=== PATIENT | female | born 1950 | race Caucasian/White ===

== ENCOUNTER 2020-03-06 21:07 | Emergency (ER) | payer MEDICARE, MEDICAID, SELFPAY ==
--- NOTE | ~2020-03-06 | CT_ITS ---
EXAMINATION: CT facial bones wo con DATE: 03/06/2020 22:21 INDICATION: Right face injury. TECHNIQUE: Computed tomography (CT) of the facial bones and maxillofacial region was performed withou t intravenous contrast. Automated exposure control and iterative reconstruction technique were employ ed. The dose-length product was 605.33 mGy-cm. COMPARISON: None. FINDINGS: There are blowout fractures of the floor and medial wall of right orbit. There is gas in th e right orbit and periorbital soft tissues with soft tissue swelling. There is hematoma in the right maxillary sinus. There is mild mucosal thickening in the ethmoid sinuses. There are old fracture defo rmities of the nasal bones. The patient is edentulous. IMPRESSION: 1. Blowout fractures of the floor and medial wall of right orbit. Reviewed, dictated and finalized at location A.
--- NOTE | ~2020-03-06 | CT_ITS ---
EXAMINATION: CT brain wo con DATE: 03/06/2020 22:21 INDICATION: Head injury. TECHNIQUE: Computed tomography (CT) of the head was performed without intravenous contrast. The mA wa s adjusted according to patient size. Iterative reconstruction technique was employed. The dose-lengt h product was 605.33 mGy-cm. COMPARISON: None FINDINGS: There are scattered areas of low attenuation in the cerebral white matter. There is no intr acranial hemorrhage, acute infarction, or abnormal intracranial mass lesion. The ventricles are moustapha l in size. There are likely changes of ocular lens replacement surgeries. There is a small left masto id effusion. There is a posterior scalp hematoma. There is mucosal thickening in the paranasal sinuse s. There is gas in the right orbit and periorbital soft tissues. There are blowout fractures of the m edial wall and floor of right orbit. IMPRESSION: 1. Extensive nonspecific cerebral white matter disease, which likely represents chronic small vessel ischemic disease. 2. Blowout fractures of the medial wall and floor of right orbit. Reviewed, dictated and finalized at location A.
--- NOTE | ~2020-03-06 | XR_ITS ---
EXAMINATION: XR elbow LT min 3V DATE: 03/06/2020 22:22 INDICATION: Left elbow pain. Fall. TECHNIQUE: 4 views of left elbow were obtained. COMPARISON: None. FINDINGS: Bone alignment is normal. No fracture. There is mild elbow joint osteoarthritis. There is a n enthesophyte at lateral humeral epicondyle. No elbow joint effusion. IMPRESSION: 1. No fracture. Reviewed, dictated and finalized at location A. IMPRESSION: 1. No fracture.
[2020-03-06 21:30] VITALS: BP 198/106; PULSE 82; RESP 20; TEMP 36.4; O2SAT 97
--- NOTE | 2020-03-06 21:38 | ED.HEATRA ---
HPI - Head Injury General Chief complaint: Head Injury Stated complaint: head,elbow,eye injury Time Seen by Provider: 03/06/20 21:38 Source: patient Mode of arrival: ambulatory Limitations: no limitations History of Present Illness HPI Narrative: 69-year-old woman comes in today complaining of facial pain and swelling, right brow laceration, and left elbow pain after falling today. She states that she fell backward earlier today walking off the bus striking the back of her head. She states she had a misstep on the curb. She denies chest pain, shortness of breath, lightheadedness, nausea, vomiting or recent illness. Approximately 20 minutes prior to presentation she fell again at home as she was getting up off of a rocking chair and she fell and struck the right side of her face on the ground. She also has contusions on her hands. Again she had no lightheadedness, dizziness, nausea, vomiting, chest pain, palpitations or loss of consciousness. She has no history of seizures or prior significant head injury. MD Complaint: head injury Onset (ago): minute(s) (20) Mechanism of Injury: fall Place: home and outdoors Loss of Consciousness: no Location of injury: occipital and face Severity: moderate Quality: sharp Radiation: none Other Injuries: upper extremity ( bilateral hands, left elbow) Associated symptoms: denies other symptoms Related Data Home Medications Medication Instructions Recorded Confirmed amitriptyline 10 mg PO HS 03/06/20 03/06/20 amlodipine 10 mg PO DAILY 03/06/20 03/06/20 cetirizine 10 mg PO DAILY 03/06/20 03/06/20 diclofenac sodium 75 mg PO BID 03/06/20 03/06/20 fluticasone propionate 1 spray INTRANASAL DAILY 03/06/20 03/06/20 gabapentin 100 mg PO TID 03/06/20 03/06/20 hydrochlorothiazide 25 mg PO DAILY 03/06/20 03/06/20 lisinopril 40 mg PO DAILY 03/06/20 03/06/20 metoprolol tartrate 25 mg PO BID 03/06/20 03/06/20 omeprazole 40 mg PO DAILY 03/06/20 03/06/20 sertraline 150 mg PO DAILY 03/06/20 03/06/20 tizanidine 2 - 4 mg PO HS PRN 03/06/20 03/06/20 tramadol 50 mg PO HS 03/06/20 03/06/20 zonisamide 50 mg PO BID 03/06/20 03/06/20 Allergies Allergy/AdvReac Type Severity Reaction Status Date / Time No Known Allergies Allergy Verified 03/06/20 21:39 Review of Systems Constitutional: Constitutional: Denies chills and Denies fever(s) Eyes: Eyes: Denies change in vision and Denies photophobia Comments: States that she can see light through her swollen right eye but cannot make out objects. ENT: Denies dysphagia, Denies epistaxis, Denies nasal congestion and Denies sore throat Cardiovascular: Cardiovascular: Denies chest pain and Denies radiating jaw, neck or arm pain Respiratory: Respiratory: Denies cough, Denies dyspnea and Denies wheezing Gastrointestinal: Gastrointestinal: Denies abdominal pain, Denies nausea and Denies vomiting Genitourinary: Genitourinary: Denies hematuria, Denies nocturia and Denies dysuria Musculoskeletal: Musculoskeletal: Reports arthralgias, Denies joint swelling and Denies muscle cramps Integumentary/Breasts: Skin/Breast: Denies pruritus, Denies erythema and Denies rash Neurologic: Denies vertigo, Denies dizziness, Denies syncope, Denies headache(s), Denies focal weakness and Denies numbness Hematologic/Lymphatic: Hematologic/Lymphatic: Denies easy bleeding and Denies easy bruising Allergic/Immunologic: Allergic/Immunologic: Denies lip swelling and Denies wheezing PMFSH Past Medical History Medical History (Updated 03/06/20 @ 23:17 by Bar Flores MD) Depression GERD (gastroesophageal reflux disease) Hypertension Neuropathy Surgical History Surgical History (Updated 03/06/20 @ 22:12 by Bar Flores MD) 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
--- NOTE | 2020-03-06 22:45 | PC.NURSE ---
[facility] IN [place] CONTACTED AT THIS TIME FOR POTENTIAL TRANSFER. AWAITING CALL BACK AT THIS TIME.
--- NOTE | 2020-03-06 22:54 | PC.NURSE ---
ERP SPOKE WITH DR. FORD AT THIS TIME
--- NOTE | 2020-03-06 22:55 | PC.NURSE ---
REPORT PROVIDED TO MEKA SEWELL
[2020-03-06 22:59] VITALS: BP 194/95; PULSE 82; RESP 18; O2SAT 99
--- NOTE | 2020-03-06 23:16 | PC.NURSE ---
2300 Report received, pt. resting bedside talking c spouse, awaiting f/u and d/c instructions. ERP speaking c [facility] for opthamologist consult. Wound to Rt. eyebrow line cleansed and prepped for steri-strip application. Pt. A&Ox3.
[2020-03-06] MEDS: AMOXICILLIN 500 MG CAPSULE 1000 MG PO (23:21)
[2020-03-06 23:25] VITALS: BP 148/110; PULSE 100; RESP 18; TEMP 36.8; O2SAT 97
== END 2020-03-06 23:35 | disposition home or self-care (01) ==
PROVIDERS: Emergency Provider Emergency Medicine
DX: S02.85XA Fracture of orbit, unspecified, initial encounter for closed fracture (principal); S09.90XA Unspecified injury of head, initial encounter; T14.8XXA Other injury of unspecified body region, initial encounter; W19.XXXA Unspecified fall, initial encounter
CPT/HCPCS: 70450; 70486; 73080; 99284; A9270

== ENCOUNTER 2020-12-11 20:47 | Observation (INO) | payer MEDICARE, MEDICAID, SELFPAY ==
--- NOTE | ~2020-12-11 | CT_ITS ---
EXAMINATION: CTA chest PE protocol DATE: 12/11/2020 22:58 CDT INDICATION: Chest pain, cough and shortness of breath. Elevated d-dimer. TECHNIQUE: Computed tomographic angiography (CTA) of the chest was performed with 100 mL Omnipaque-35 0 intravenous contrast. The dose-length product was 699.62 mGy-cm. Maximum intensity projection 3D-re constructions of the aorta and other arteries were constructed by the technologist on a separate work station. Automated exposure control and iterative reconstruction technique were employed. COMPARISON: Chest x-ray dated 12/11/2020. FINDINGS: There is extensive groundglass opacification of the left upper lobe with mosaic attenuation . This is superimposed on coarse interstitial fibrosis of the lung periphery. Study is technically ad equate without evidence for pulmonary embolism. There is extensive mediastinal and bilateral hilar lymphadenopathy. Small left pleural effusion. Ther e is a 3.8 cm left lower lobe mass. There is upper abdominal lymphadenopathy involving the lesser cur vature of the stomach, portacaval region and periaortic locations. There is retrocrural lymphadenopat hy. There is accentuated thoracic kyphosis. No focal lytic or blastic lesions. IMPRESSION: 1. No evidence for pulmonary embolism. 2: Patchy mosaic groundglass opacification of the left upper lobe, most likely pneumonia. This is sup erimposed on coarse interstitial lung disease, likely chronic fibrosis. 3: Left lower lobe mass measuring 3.8 cm maximum axial dimension, suspicious for primary bronchogenic carcinoma. Consider correlation with pet/CT scan or percutaneous biopsy. 4: Extensive mediastinal, hilar and upper abdominal lymphadenopathy which may represent metastatic d isease, although lymphoma is also a consideration. Reviewed, dictated and finalized at location A. IMPRESSION: 1. No evidence for pulmonary embolism. 2: Patchy mosaic groundglass opacification of the left upper lobe, most likely pneumonia. This is superimposed on coarse interstitial lung disease, likely chr onic fibrosis. 3: Left lower lobe mass measuring 3.8 cm maximum axial dimension, suspicious fo r primary bronchogenic carcinoma. Consider correlation with pet/CT scan or perc utaneous biopsy. 4: Extensive mediastinal, hilar and upper abdominal lymphadenopathy which may represent metastatic disease, although lymphoma is also a consideration.
--- NOTE | ~2020-12-11 | XR_ITS ---
XR chest 2V 12/11/2020 21:50 Indication: Chest burning. Cough and shortness of breath. Procedure: PA and lateral views of the chest Comparison: No prior studies for comparison. Findings: There is mixed interstitial and airspace disease peripherally in both lungs. There is promi nent soft tissue overlying the left hilum. Small pleural effusions. No pneumothorax. Impression: 1: Extensive mixed interstitial and airspace disease of both lungs with more focal consolidation the left perihilar location. This constellation of findings is suspicious for chronic interstitial fibros is with possible superimposed left perihilar pneumonia. Cannot exclude lymphadenopathy. Reviewed, dictated and finalized at location A. Impression: 1: Extensive mixed interstitial and airspace disease of both lungs with more fo fadia consolidation the left perihilar location. This constellation of findings i s suspicious for chronic interstitial fibrosis with possible superimposed left perihilar pneumonia. Cannot exclude lymphadenopathy.
--- NOTE | 2020-12-11 20:49 | ECG_ITS ---
Measurements Intervals [place] Rate: 87 P: 53 ND: 147 QRS: 24 QRSD: 97 T: 30 QT: 360 QTc: 434 Interpretive Statements SINUS RHYTHM POSSIBLE LEFT ATRIAL ENLARGEMENT BASELINE WANDER- AVR, AVL, AVF, V6 BORDERLINE ECG Electronically Signed On 12-12-2020 7:19:11 CDT by Harley Dick D.O.
[2020-12-11 20:50] VITALS: BP 125/89; PULSE 83; RESP 30; TEMP 36.6; O2SAT 93; O2SAT 94
[2020-12-11 20:55] VITALS: PULSE 82
--- NOTE | 2020-12-11 21:01 | ED.CHESTPAIN ---
HPI - Chest Pain General Chief Complaint: Chest Pain Stated Complaint: chest pain, SOB Time Seen by Provider: 12/11/20 20:49 Source: patient Mode of arrival: ambulatory Limitations: no limitations History of Present Illness HPI narrative: 70-year-old woman comes in today complaining of 2 days progressively worsening shortness of breath and chest pain which is burning in nature and in the center of her chest starting today. She states she is also having some sharp pain in her right anterior chest. She states that she has had a nonproductive cough and has felt feverish. She states that chest pain is constant and does not seem to be alleviated by or exacerbated by activity or rest. She denies any recent sick exposures and completed her COVID vaccine on November 30. She denies syncope, vomiting, diarrhea, dysuria, abdominal pain, and palpitations. MD complaint: chest pain Onset (ago): day(s) (1) Timing of current episode: constant, increasing and still present Prior episodes: No Onset: during rest Pain location: substernal Pain radiation: none Severity: moderate Quality: burning Relieving factors: nothing Exacerbating factors: nothing Associated symptoms: dyspnea, fever and cough Treatment prior to arrival: none Risk Factors Coronary artery disease risk factors: smoking history and hypertension Related Data Home Medications Medication Instructions Recorded Confirmed amitriptyline 10 mg PO HS 03/06/20 12/11/20 amlodipine 10 mg PO DAILY 03/06/20 12/11/20 fluticasone propionate 1 spray INTRANASAL DAILY 03/06/20 12/11/20 gabapentin 100 mg PO TID 03/06/20 12/11/20 hydrochlorothiazide 25 mg PO DAILY 03/06/20 12/11/20 lisinopril 40 mg PO DAILY 03/06/20 12/11/20 metoprolol tartrate 25 mg PO BID 03/06/20 12/11/20 omeprazole 40 mg PO DAILY 03/06/20 12/11/20 tizanidine 2 - 4 mg PO HS PRN 03/06/20 12/11/20 tramadol 50 mg PO HS 03/06/20 12/11/20 oxybutynin chloride 5 mg PO BID 12/11/20 12/11/20 venlafaxine 75 mg PO DAILY 12/11/20 12/11/20 Allergies Allergy/AdvReac Type Severity Reaction Status Date / Time No Known Allergies Allergy Verified 03/06/20 21:39 Review of Systems Review of Systems: All systems reviewed & are unremarkable except as noted in HPI and below Constitutional: Constitutional: Denies chills, Reports fatigue and Reports fever(s) Eyes: Eyes: Denies change in vision and Denies photophobia ENT: Denies nasal congestion and Denies sore throat Cardiovascular: Cardiovascular: Reports chest pain and Denies radiating jaw, neck or arm pain Respiratory: Respiratory: Reports cough, Reports dyspnea and Denies wheezing Gastrointestinal: Gastrointestinal: Denies abdominal pain, Denies nausea and Denies vomiting Genitourinary: Genitourinary: Denies nocturia and Denies dysuria Musculoskeletal: Musculoskeletal: Denies arthralgias and Denies joint swelling Integumentary/Breasts: Skin/Breast: Denies pruritus, Denies erythema and Denies rash Neurologic: Denies vertigo, Denies dizziness and Denies syncope Hematologic/Lymphatic: Hematologic/Lymphatic: Denies easy bleeding and Denies easy bruising Allergic/Immunologic: Allergic/Immunologic: Denies lip swelling and Denies throat swelling PMFSH Past Medical History Medical History (Updated 12/12/20 @ 00:13 by Bar Flores MD) Depression GERD (gastroesophageal reflux disease) Hep C w/o coma, chronic Hypertension Mixed urge and stress incontinence Neuropathy Osteoarthritis Surgical History Surgical History (Updated 03/06/20 @ 22:12 by Bar Flores MD) H/O skin graft after complicated staph infection Hx of total knee arthroplasty right Social History Social History Smoking status: Current every day smoker Alcohol intake: current Substance use: never Exam Const: General: alert and ill appearing acutely ( mildly) Nutritional Appearance: obese Orientation/consciousness: patient or
[2020-12-11] MEDS: ASPIRIN 81 MG CHEWABLE TABLET 324 MG PO (21:15)
[2020-12-11 21:35] LABS: Basophils Absolute Auto 0.04 K/mm3 (0.00-0.10); Basophils Percent Auto 0.5 % (0.0-1.0); Eosinophils Absolute Auto 0.15 K/mm3 (0.02-0.50); Eosinophils Percent Auto 1.7 % (1.0-6.0); Hematocrit 38.9 % (35.0-42.0); Hemoglobin 12.8 g/dL (11.7-13.8); Immature Granulocyte Absolute 0.03 K/mm3 (0.00-0.00); Immature Granulocyte Percent A 0.3 % (0.0-0.0); Lymphocytes Absolute Auto 1.82 K/mm3 (1.10-4.50); Lymphocytes Percent Auto 21.1 % (18.0-42.0); Mean Corpuscular HGB Conc 32.9 g/dL (32.0-36.0); Mean Corpuscular Hemoglobin 32.6 pg (27.0-31.0); Monocytes Absolute Auto 0.92 K/mm3 (0.10-0.90); Monocytes Percent Auto 10.7 % (2.0-11.0); Neutrophils Absolute Auto 5.7 K/mm3 (1.7-7.2); Neutrophils Percent Auto 65.7 % (50.0-70.0); Platelet Count Result 241 K/mm3 (150-420); Red Blood Count 3.93 M/mm3 (4.20-5.40); Red Cell Distribution Width 13.8 % (11.6-14.4); White Blood Count 8.6 K/mm3 (4.8-10.8)
[2020-12-11 21:49] LABS: Partial Thromboplastin Time 23.4 SEC (23.90-30.70); Prothrombin Time 10.3 Seconds (9.50-12.10)
[2020-12-11 21:57] LABS: Alanine Aminotransferase 14 U/L (14-59); Albumin Level 2.8 g/dL (3.4-5.0); Alkaline Phosphatase 88 U/L (46-116); Anion Gap 11 mmol/L (8-16); Aspartate Amino Transferase 33 U/L (15-37); Bilirubin,Total 0.4 mg/dL (0.00-1.00); Blood Urea Nitrogen 10 mg/dL (7-18); Calcium 8.9 mg/dL (8.5-10.1); Carbon Dioxide 24 mmol/L (21-32); Chloride 102 mmol/L (98-108); Estimated CRCL calculation 56 ml/min; Estimated Glomerular Filt Rate > 60; Glucose 105 mg/dL (70-99); NT Pro B Type Natriuretic Pept 177; Osmolality Calculated 283 mOsm/kg (285-295); Potassium 3.4 mmol/L (3.5-5.1); Sodium 137 mmol/L (136-145); Total Protein 7.2 g/dL (6.4-8.2)
[2020-12-11 22:02] LABS: Troponin I 6.1 ng/L (0.00-60.4)
[2020-12-11 22:11] VITALS: BP 160/60; PULSE 80; RESP 26; O2SAT 97
[2020-12-11 22:15] LABS: Influenza A QL RT-PCR Negative (Negative); Influenza B QL RT-PCR Negative (Negative); SARS-CoV-2 RNA PCR Negative (Negative)
[2020-12-11 22:15] LABS: Add Urine Microscopic? YES; Appearance Urine Cloudy (Clear); Bilirubin Urine Negative (Negative); Blood Urine 1+ (Negative); Color Urine Yellow (Yellow); Glucose Urine UA Negative (Negative); Ketones Urine Negative (Negative); Leukocyte Esterase Ur 1+ (Negative); Nitrate Urine Positive (Negative); Protein Urine Trace (Negative); Specific Grav Ur 1.015 (1.010-1.020)
[2020-12-11] MEDS: ONDANSETRON INJ 4 MG/2 ML VIAL IV PUSH (22:17)
[2020-12-11] MEDS: MORPHINE SULFATE (*CRX) 2 MG/ML INJ IV PUSH (22:19)
[2020-12-11 22:45] LABS: Bacteria Urine 4+ /hpf; Squamous Epithelial Cell Urine Few /hpf (Few); WBC Urine 21-30 /hpf (0-3)
[2020-12-11 22:46] LABS: Mucus Urine Moderate /lpf
--- NOTE | 2020-12-11 23:26 | PC.NURSE ---
ERP discussed POC for 23 hr obs. Call placed for bed.
[2020-12-11 23:48] VITALS: BP 114/97; PULSE 81; RESP 20; TEMP 36.6; O2SAT 94
[2020-12-12] VITALS (8 sets, daily range): BP systolic 154–163; BP diastolic 59–69; PULSE 63–92; RESP 16–22; TEMP 36.7–37.2; O2SAT 90–96; BMI 33.6
--- NOTE | 2020-12-12 00:39 | ADMGEN ---
This patient, Dalila Dinero, was admitted to 2nd Floor Room 205-2. Patient oriented to hospital policies and general routines including ID bracelet, bed and alarms, visiting hours, pain management, procedures, bathroom and other care routines, personal items, smoking policy, room service/diet, and visiting hours. Information on how to activate the Rapid Response Team has been discussed. Patient are encouraged to report perceived risks to care and to ask questions if they do not understand what they are told or what they should do.
--- NOTE | 2020-12-12 01:11 | PC.NURSE ---
Talked to Dr. Flores about pt's request for medications she takes at bedtime at home as well as order clarification. Orders received and noted.
[2020-12-12] MEDS: SODIUM CHLORIDE 0.9% IV 1,000 ML 100 ML IV CONT (01:17)
[2020-12-12] MEDS: ALBUTEROL SULFATE NEB 2.5 MG/3 ML INH INHALATION ×2 (01:17→05:35)
--- NOTE | 2020-12-12 01:43 | PC.NURSE ---
Spoke to Dr. Flores to clarify orders; Orders clarified.
[2020-12-12] MEDS: SERTRALINE HCL 50 MG TABLET 100 MG PO (01:46)
[2020-12-12] MEDS: MELATONIN 5 MG TABLET PO (01:46)
[2020-12-12] MEDS: TIZANIDINE HCL 2 MG TABLET PO (01:46)
[2020-12-12] MEDS: AMITRIPTYLINE HCL 10 MG TABLET PO (01:55)
[2020-12-12] MEDS: traMADol HCL (*CRX) 50 MG TABLET PO (01:55)
[2020-12-12 04:10] LABS: Troponin I 6.2 ng/L (0.00-60.4)
[2020-12-12 05:39] LABS: Basophils Absolute Auto 0.04 K/mm3 (0.00-0.10); Basophils Percent Auto 0.5 % (0.0-1.0); Eosinophils Percent Auto 1.1 % (1.0-6.0); Hematocrit 36.3 % (35.0-42.0); Hemoglobin 12.2 g/dL (11.7-13.8); Immature Granulocyte Absolute 0.04 K/mm3 (0.00-0.00); Immature Granulocyte Percent A 0.5 % (0.0-0.0); Lymphocytes Absolute Auto 1.39 K/mm3 (1.10-4.50); Lymphocytes Percent Auto 15.9 % (18.0-42.0); Mean Corpuscular HGB Conc 33.6 g/dL (32.0-36.0); Mean Corpuscular Hemoglobin 32.5 pg (27.0-31.0); Mean Corpuscular Volume 96.8 fL (78.0-102.0); Mean Platelet Volume 11.5 fl (9.2-11.8); Monocytes Absolute Auto 0.87 K/mm3 (0.10-0.90); Monocytes Percent Auto 9.9 % (2.0-11.0); Neutrophils Absolute Auto 6.3 K/mm3 (1.7-7.2); Neutrophils Percent Auto 72.1 % (50.0-70.0); Platelet Count Result 251 K/mm3 (150-420); Red Blood Count 3.75 M/mm3 (4.20-5.40); Red Cell Distribution Width 13.6 % (11.6-14.4); White Blood Count 8.8 K/mm3 (4.8-10.8)
[2020-12-12 05:52] LABS: Alanine Aminotransferase 15 U/L (14-59); Albumin Level 2.8 g/dL (3.4-5.0); Alkaline Phosphatase 78 U/L (46-116); Anion Gap 11 mmol/L (8-16); Aspartate Amino Transferase 28 U/L (15-37); Bilirubin,Total 0.4 mg/dL (0.00-1.00); Blood Urea Nitrogen 8 mg/dL (7-18); Calcium 8.9 mg/dL (8.5-10.1); Carbon Dioxide 25 mmol/L (21-32); Chloride 101 mmol/L (98-108); Estimated CRCL calculation 68 ml/min; Estimated Glomerular Filt Rate > 60; Glucose 106 mg/dL (70-99); Osmolality Calculated 282 mOsm/kg (285-295); Potassium 2.9 mmol/L (3.5-5.1); Sodium 137 mmol/L (136-145); Total Protein 7.2 g/dL (6.4-8.2)
[2020-12-12] MEDS: POTASSIUM CHLORIDE 20 MEQ TABLET 40 MEQ PO (08:40)
[2020-12-12] MEDS: lisinopriL 20 MG TABLET 40 MG PO (08:46)
[2020-12-12] MEDS: FLUTICASONE PROPIONATE 0.05% NA SPR 16 GM BTL (*BKC) 1 SPRAY NASAL (08:46)
[2020-12-12] MEDS: OXYBUTYNIN CHLORIDE 5 MG TABLET PO (08:47)
[2020-12-12] MEDS: GABAPENTIN 100 MG CAPSULE PO (08:47)
[2020-12-12] MEDS: POTASSIUM CHLORIDE 20 MEQ TABLET PO (08:48)
[2020-12-12] MEDS: PANTOPRAZOLE 40 MG TABLET PO (08:51)
[2020-12-12] MEDS: amLODIPine BESYLATE 5 MG TABLET 10 MG PO (08:52)
[2020-12-12] MEDS: METOPROLOL TARTRATE 25 MG TABLET PO (08:53)
[2020-12-12] MEDS: hydroCHLOROthiazide 25 MG TABLET PO (08:54)
[2020-12-12] MEDS: VENLAFAXINE HCL XR 75 MG CAP.ER.24H PO (08:58)
[2020-12-12] MEDS: ENOXAPARIN 40 MG/0.4 ML SYRINGE SUB-Q (09:02)
--- NOTE | 2020-12-12 11:01 | PM.IMHP ---
H&P: HPI History of Present Illness Date/Time: 12/12/20 11:01 this is a 69-year-old female with a presented to our ED with complaints of shortness of breath and chest discomfort. Patient has a past medical history of osteoarthritis neuropathy, stress incontinence, hypertension, hep C, GERD, and depression. According to patient for the last 2 days she has been experiencing shortness of breath that worsened with ambulation and chest discomfort. Patient notes that the chest discomfort is a burning sensation in her midsternal area. Patient's current vital signs 98.9, 85, 22, 96% room air, 154/69. On admission patient's WBCs 8.6, hemoglobin 12.8, hematocrit 38.9, platelets 241, D-dimer 1.10, sodium 137, potassium 2.9, BUN 8, creatinine 0.68, glucose 106, AST 28, ALT 15, troponin 6.1, BNP 177, UA with trace of protein, nitrates, leukocyte esterase, RBCs, bacteria, influenza and Covid negative, CTA and CT indicate pneumonia. [facility] Past Medical History Medical History (Updated 12/12/20 @ 00:13 by Bar Flores MD) Depression GERD (gastroesophageal reflux disease) Hep C w/o coma, chronic Hypertension Mixed urge and stress incontinence Neuropathy Osteoarthritis Surgical History Surgical History (Updated 03/06/20 @ 22:12 by Bar Flores MD) H/O skin graft after complicated staph infection Hx of total knee arthroplasty right Social History Social History Smoking packs per day: 1.5 Smoking cigarettes per day: 30.0 Smoking status: Smoker, status unknown Second hand tobacco smoke exposure: No Additional smoking assessment comments: has not smoked for 1 week Alcohol intake: current Drinks per week: 1 Substance use: never Gender identity (if verbalized by the patient): Female Sexual Orientation (if Verbalized by the Patient): Straight or Heterosexual Spiritual care concerns: No Meds Home Medications and Allergies Home Medications Medication Instructions Recorded Confirmed Type amitriptyline 10 mg PO HS 03/06/20 12/11/20 History amlodipine 10 mg PO DAILY 03/06/20 12/11/20 History fluticasone propionate 1 spray INTRANASAL DAILY 03/06/20 12/11/20 History gabapentin 100 mg PO TID 03/06/20 12/11/20 History hydrochlorothiazide 25 mg PO DAILY 03/06/20 12/11/20 History lisinopril 40 mg PO DAILY 03/06/20 12/11/20 History metoprolol tartrate 25 mg PO BID 03/06/20 12/11/20 History omeprazole 40 mg PO DAILY 03/06/20 12/11/20 History tizanidine 2 - 4 mg PO HS PRN 03/06/20 12/11/20 History tramadol 50 mg PO HS 03/06/20 12/11/20 History oxybutynin chloride 5 mg PO BID 12/11/20 12/11/20 History venlafaxine 75 mg PO DAILY 12/11/20 12/11/20 History Allergies Allergy/AdvReac Type Severity Reaction Status Date / Time No Known Allergies Allergy Verified 03/06/20 21:39 Vital Signs Vital Signs - 24 hr 12/11/20 20:50 12/11/20 20:55 12/11/20 22:11 Temperature 97.9 F Pulse Rate 83 82 80 Respiratory Rate 30 H 26 H Blood Pressure 125/89 160/60 H Pulse Oximetry 94 97 12/11/20 23:48 12/12/20 00:20 12/12/20 01:15 Temperature 97.8 F 98.4 F Pulse Rate 81 87 88 Respiratory Rate 20 22 H 20 Blood Pressure 114/97 H 163/59 H Pulse Oximetry 94 93 93 12/12/20 01:30 12/12/20 04:00 12/12/20 05:36 Temperature 98.7 F Pulse Rate 92 81 78 Respiratory Rate 20 20 20 Blood Pressure 157/61 H Pulse Oximetry 94 93 90 12/12/20 05:44 12/12/20 08:00 Temperature 98.9 F Pulse Rate 80 85 Respiratory Rate 16 22 H Blood Pressure 154/69 H Pulse Oximetry 94 96 H&P: Results Labs Labs: Short CBC 12/11/20 12/12/20 Range/Units 21:31 05:08 WBC 8.6 8.8 (4.8-10.8) K/mm3 Hgb 12.8 12.2 (11.7-13.8) g/dL Hct 38.9 36.3 (35.0-42.0) % Plt Count 241 251 (150-420) K/mm3 [facility] 12/11/20 12/11/20 12/12/20 21:31 21:31 05:08 Sodium 137 Cancelled 137 Potassium 3.4 L Cancelled 2.9 L Chloride 102 Cancelled 101 Carbon D
--- NOTE | 2020-12-12 11:12 | PM.SD2 ---
Same Day Admit/Disch: HPI History of Present Illness Chief complaint: CHEST PAIN UTI PNEUMONIA LUNG MASS Narrative: 12/12/20 11:01 this is a 70-year-old female who presented to our ED with complaints of shortness of breath and chest discomfort. Patient has a past medical history of osteoarthritis neuropathy, stress incontinence, hypertension, hep C, GERD, and depression. According to patient for the last 2 days she has been experiencing shortness of breath that worsened with ambulation and chest discomfort. Patient notes that the chest discomfort is a burning sensation in her midsternal area. Patient's current vital signs 98.9, 85, 22, 96% room air, 154/69. On admission patient's WBCs 8.6, hemoglobin 12.8, hematocrit 38.9, platelets 241, D-dimer 1.10, sodium 137, potassium 2.9, BUN 8, creatinine 0.68, glucose 106, AST 28, ALT 15, troponin 6.1, BNP 177, UA with trace of protein, nitrates, leukocyte esterase, RBCs, bacteria, influenza and Covid negative, CTA and CT indicate pneumonia. EKG indicates sinus rhythm with a heart rate of 87. Patient does note that she continues to have that burning sensation in her mid sternum area her shortness of breath has improved but remains. She is currently on room air, does not appear to be in any distress and agrees with her discharge home today. The patient denies , CP, palpitation, extremity numbness, lightheadedness, dizziness, constipation, diarrhea, chills, or fever. Spoke with patient concerning a 3.8 mm lung mass that was located on her left lower lobe informed patient she will have to follow-up with her primary care physician with a biopsy. I did attempt to call Dr. Jean-Baptiste. Will inform him of the new finding in recommendation to get a biopsy. Awaiting for callback Observation 60 minutes spent with patient Family hx :Reviewed and noncontributory Disposition patient will discharge home with self-care [facility] Past Medical History Medical History (Updated 12/12/20 @ 11:28 by MICHELET Frederick-C) Depression GERD (gastroesophageal reflux disease) Hep C w/o coma, chronic Hypertension Mixed urge and stress incontinence Neuropathy Osteoarthritis Surgical History Surgical History (Updated 03/06/20 @ 22:12 by Bar Flores MD) H/O skin graft after complicated staph infection Hx of total knee arthroplasty right Social History Social History Smoking packs per day: 1.5 Smoking cigarettes per day: 30.0 Smoking status: Smoker, status unknown Second hand tobacco smoke exposure: No Additional smoking assessment comments: has not smoked for 1 week Alcohol intake: current Drinks per week: 1 Substance use: never Gender identity (if verbalized by the patient): Female Sexual Orientation (if Verbalized by the Patient): Straight or Heterosexual Spiritual care concerns: No Same Day Admit/Disch: Med Pre-admit Medications Home Medications Medication Instructions Recorded Confirmed Type amitriptyline 10 mg PO HS 03/06/20 12/11/20 History amlodipine 10 mg PO DAILY 03/06/20 12/11/20 History fluticasone propionate 1 spray INTRANASAL DAILY 03/06/20 12/11/20 History gabapentin 100 mg PO TID 03/06/20 12/11/20 History hydrochlorothiazide 25 mg PO DAILY 03/06/20 12/11/20 History lisinopril 40 mg PO DAILY 03/06/20 12/11/20 History metoprolol tartrate 25 mg PO BID 03/06/20 12/11/20 History omeprazole 40 mg PO DAILY 03/06/20 12/11/20 History tizanidine 2 - 4 mg PO HS PRN 03/06/20 12/11/20 History tramadol 50 mg PO HS 03/06/20 12/11/20 History oxybutynin chloride 5 mg PO BID 12/11/20 12/11/20 History venlafaxine 75 mg PO DAILY 12/11/20 12/11/20 History Exam Narrative: Exam Narrative: GENERAL: This is a well-nourished, well-developed patient, in no apparent distress. HEAD: normocephalic, atraumatic. EYES: PERRL. Sclera clear/white. Vision is grossly intact. EARS: External ears normal, auditory canals clear and wit
[2020-12-12 12:27] LABS: Potassium 3.7 mmol/L (3.5-5.1)
--- NOTE | 2020-12-12 14:11 | PC.NURSE ---
Pt discharged to home. All personal items returned. Discharge instructions given. Discharged per WC to ' s car.
--- NOTE | 2020-12-17 13:30 | PC.NURSE ---
Pt states she received and understood her discharge instructions. Pt also states everybody was great and I really appreciate everything .
== END 2020-12-12 13:40 | disposition home or self-care (01) ==
LOC: CHSED 20:50 → CHS2ND 12-12 00:13
PROVIDERS: Nurse Practitioner; Admitting Provider Emergency Medicine; Emergency Provider Emergency Medicine; Visit Provider Emergency Medicine
DX: J18.9 Pneumonia, unspecified organism (principal); N39.0 Urinary tract infection, site not specified; E87.6 Hypokalemia; R07.9 Chest pain, unspecified; R59.0 Localized enlarged lymph nodes; R91.8 Other nonspecific abnormal finding of lung field; I10 Essential (primary) hypertension; B18.2 Chronic viral hepatitis C; G62.9 Polyneuropathy, unspecified; M19.90 Unspecified osteoarthritis, unspecified site; K21.9 Gastro-esophageal reflux disease without esophagitis; N39.46 Mixed incontinence; F32.9 Major depressive disorder, single episode, unspecified; F17.200 Nicotine dependence, unspecified, uncomplicated; Z20.822 Contact with and (suspected) exposure to COVID-19; Z96.651 Presence of right artificial knee joint
CPT/HCPCS: 36415; 71046; 71275; 80053; 81001; 83880; 84132; 84484; 85025; 85380; 85610; 85730; 87040; 87077; 87086; 87088; 87186; 87502; 93005; 94640; 96361; 96365; 96367; 96372; 96374; 96375; 99285; A9270; C9803; G0378; J0456; J0696; J1650; J2270; J2405; J7030; Q9967; U0003; U0005

== ENCOUNTER 2020-12-22 15:18 | Inpatient (IN) | payer MEDICARE, MEDICAID, SELFPAY ==
[2020-12-22] VITALS (8 sets, daily range): BP systolic 105–140; BP diastolic 59–72; PULSE 74–88; RESP 20; TEMP 36.7–36.8; O2SAT 93–98; BMI 34.1
--- NOTE | ~2020-12-22 | XR_ITS ---
EXAMINATION: XR chest 1V portable DATE: 12/22/2020 16:34 INDICATION: Dyspnea TECHNIQUE: frontal view of the chest was obtained. COMPARISON: Chest radiograph dated CT dated 12/11/2020 FINDINGS: Left lower lobe mass projecting over the left midlung zone concerning for primary bronchogenic carcin seven. There are increased interstitial and groundglass opacities, now throughout the right lung and in the left lower lung zone. No pneumothorax or pleural effusion. Heart size is normal. Enlargement of the bilateral milo, left greater than right and widening of the right side of the mediastinum corresp onding to bulky lymphadenopathy in prior CT suspicious for metastatic disease. IMPRESSION: 1. Increasing interstitial and groundglass opacities throughout the right lung and in the left lower lung zone which given the rapid development would favor pulmonary edema and/or pneumonia. 2. Left lower lobe mass and enlargement of the bilateral milo and superior mediastinum consistent wit h primary bronchogenic carcinoma with metastatic lymphadenopathy. Reviewed, dictated and finalized at location A. IMPRESSION: 1. Increasing interstitial and groundglass opacities throughout the right lung and in the left lower lung zone which given the rapid development would favor p ulmonary edema and/or pneumonia. 2. Left lower lobe mass and enlargement of the bilateral milo and superior medi astinum consistent with primary bronchogenic carcinoma with metastatic lymphade nopathy.
--- NOTE | ~2020-12-22 | XR_ITS ---
EXAMINATION: XR chest 1V INDICATION: Shortness of breath TECHNIQUE: AP view of the chest is obtained. COMPARISON: CT, 12/11/2020; chest radiographs dated 12/22/2020 FINDINGS: Diffuse reticular and airspace opacities persist with slight improvement. There is no pleur al effusion or pneumothorax. A left lower lobe mass better seen on the comparison CT is unchanged. Wi dening of the mediastinum and enlargement of the bilateral milo is consistent with lymphadenopathy. IMPRESSION: 1. Chronic interstitial lung disease with resolving superimposed pneumonia and/or pulmonary edema. 2. Left lower lobe mass, consistent with primary bronchogenic carcinoma, with likely metastatic bilat eral hilar and mediastinal lymphadenopathy. Reviewed, dictated and finalized at location A. IMPRESSION: 1. Chronic interstitial lung disease with resolving superimposed pneumonia and/ or pulmonary edema. 2. Left lower lobe mass, consistent with primary bronchogenic carcinoma, with l ikely metastatic bilateral hilar and mediastinal lymphadenopathy.
--- NOTE | ~2020-12-22 | XR_ITS ---
EXAMINATION: XR abdomen/kub 1V INDICATION: Abdominal pain TECHNIQUE: Supine views of the abdomen were obtained on 2 radiographs. COMPARISON: None FINDINGS: There is a large volume of colonic stool. No dilated loops of bowel are evident. Changes of interstitial lung disease and superimposed pneumonia versus pulmonary edema are noted in the visuali zed lung bases. There is also a partially imaged mass of the left lower lobe. Severe lumbar spondylos is is noted. IMPRESSION: 1. Constipation. Reviewed, dictated and finalized at location A. IMPRESSION: 1. Constipation.
--- NOTE | ~2020-12-22 | NM_ITS ---
EXAMINATION: NM pulmonary perfusion EXAM DATE: 12/24/2020 10:48 INDICATION: Elevated d-dimer. TECHNIQUE: A perfusion lung scan was performed. The patient was injected with 5 mCi technetium 99m M AA and imaged. Modified PIOPED 2 criteria used for interpretation of perfusion without ventilation st udy (recent chest x-ray instead for comparison). Correlation is made to chest x-ray same date. FINDINGS: Regions of slightly heterogeneous perfusion, no segmental defects. Very low probability pul monary embolism. IMPRESSION: Very low probability pulmonary embolism. Reviewed, dictated and finalized at location B.
--- NOTE | 2020-12-22 15:47 | ECG_ITS ---
Corrected Report Report moved from [id number] to [id number] -[facility] Measurements Intervals [place] Rate: P: [place]: QRS: QRSD: T: QT: QTc: Interpretive Statements SINUS RHYTHM BORDERLINE ST-T WAVE ABNORMALITY- INFERIOR LEADS BASELINE ARTIFACT- I, II, AVR, AVL, AVF BORDERLINE ECG Electronically Signed On 12-24-2020 12:22:44 CDT by Harley LUO
[2020-12-22] MEDS: methylPREDNISolone SOD SUCC 125 MG VIAL IV PUSH (16:28)
[2020-12-22] MEDS: IPRATROPIUM 0.5 MG/ALBUTEROL SULFATE 2.5 MG AMPUL.NEB 3 ML INHALATION ×2 (16:28→19:55)
[2020-12-22 16:37] LABS: Basophils Absolute Auto 0.02 K/mm3 (0.00-0.10); Basophils Percent Auto 0.2 % (0.0-1.0); Hemoglobin 13.9 g/dL (11.7-13.8); Immature Granulocyte Absolute 0.17 K/mm3 (0.00-0.00); Immature Granulocyte Percent A 1.6 % (0.0-0.0); Lymphocytes Absolute Auto 0.89 K/mm3 (1.10-4.50); Lymphocytes Percent Auto 8.6 % (18.0-42.0); Mean Corpuscular HGB Conc 33.9 g/dL (32.0-36.0); Mean Corpuscular Hemoglobin 32.2 pg (27.0-31.0); Mean Corpuscular Volume 94.9 fL (78.0-102.0); Mean Platelet Volume 10.8 fl (9.2-11.8); Monocytes Absolute Auto 0.71 K/mm3 (0.10-0.90); Monocytes Percent Auto 6.9 % (2.0-11.0); Neutrophils Absolute Auto 8.4 K/mm3 (1.7-7.2); Neutrophils Percent Auto 81.7 % (50.0-70.0); Platelet Count Result 293 K/mm3 (150-420); Red Blood Count 4.32 M/mm3 (4.20-5.40); Red Cell Distribution Width 13.2 % (11.6-14.4); White Blood Count 10.3 K/mm3 (4.8-10.8)
[2020-12-22] MEDS: KETOROLAC 15 MG/ML VIAL (*BKC) IV PUSH (16:52)
[2020-12-22] MEDS: ALPRAZolam (*CRX) 0.5 MG TABLET PO (16:52)
[2020-12-22 16:54] LABS: INR 1.1; Partial Thromboplastin Time 25.1 SEC (23.90-30.70); Prothrombin Time 11.5 Seconds (9.50-12.10)
[2020-12-22 16:59] LABS: Alanine Aminotransferase 26 U/L (14-59); Albumin Level 3.1 g/dL (3.4-5.0); Alkaline Phosphatase 106 U/L (46-116); Anion Gap 11 mmol/L (8-16); Aspartate Amino Transferase 53 U/L (15-37); Bilirubin,Total 0.6 mg/dL (0.00-1.00); Blood Urea Nitrogen 37 mg/dL (7-18); Calcium 9.6 mg/dL (8.5-10.1); Carbon Dioxide 21 mmol/L (21-32); Chloride 88 mmol/L (98-108); Estimated CRCL calculation 28 ml/min; Estimated Glomerular Filt Rate 31; Glucose 106 mg/dL (70-99); Magnesium 2.1 mg/dL (1.8-2.4); NT Pro B Type Natriuretic Pept 123 pg/mL (0-125); Osmolality Calculated 258 mOsm/kg (285-295); Potassium 4.7 mmol/L (3.5-5.1); Total Protein 7.4 g/dL (6.4-8.2); Troponin I 7.6 ng/L (0.00-60.4)
[2020-12-22 17:01] LABS: Sodium 120 mmol/L (136-145)
[2020-12-22 17:02] LABS: D Dimer 1.16 mg/L (0.19-0.50)
[2020-12-22 17:04] LABS: Influenza Control Valid (Valid)
[2020-12-22 17:05] LABS: SARS-CoV-2 Ag Negative (Negative)
[2020-12-22 17:07] LABS: Base Excess ABG -5.8 mmol/L (0-2); HCO3 ABG 16.6 mmol/L (23-29); Modified Allen's Test Pass; Oxygen Content ABG 18.1 %vol (16.0-22.0); Oxyhemoglobin 87.6 % (94-100); PCO2 ABG 25.4 mmHg (35-45); PO2 ABG 54.4 mmHg (75-85); Site Drawn RIGHT RADIAL; Total Hemoglobin 14.7 g/dL; pH ABG 7.43 (7.35-7.45)
[2020-12-22 17:08] LABS: Device HIGH FLOW NASAL CANN
--- NOTE | 2020-12-22 17:47 | ED.SOB ---
HPI - SOB/Dyspnea General Chief Complaint: Shortness of Breath/Dyspnea Stated Complaint: AMB Source: patient Mode of arrival: EMS Limitations: no limitations History of Present Illness HPI Narrative: this is a 70-year-old female with a history of COPD, hypertension depression was recently discharged from our facility December 12, 2020 with diagnosis and a lung mass and was discharged with antibiotics. Patient did follow-up with her primary care physician because of continued dyspnea with exertion and was some started on p.o. antibiotics. The patient's condition continued to to be about the same and and then worsening today where she felt more dyspneic with exertion with some chest tightness was anxious, with no fever chills no nausea vomiting no abdominal pain. Patient was brought in by EMS was given breathing treatment and her O2 sats were around 97 to 98% On 4L of O2. MD elicited complaint: shortness of breath and cough Pertinent past history: COPD Onset (ago): week(s) Context: anxiety Timing: constant Severity: severe Exacerbating factors: exertion Relieving factors: oxygen, rest, bronchodilators and upright position Known history of: COPD Associated symptoms: chest pain, cough and wheezing Related Data Home Medications Medication Instructions Recorded Confirmed amitriptyline 10 mg PO HS 03/06/20 12/22/20 amlodipine 10 mg PO DAILY 03/06/20 12/22/20 fluticasone propionate [Flonase 1 spray INTRANASAL DAILY 03/06/20 12/22/20 Allergy Relief] gabapentin 100 mg PO TID 03/06/20 12/22/20 hydrochlorothiazide 25 mg PO DAILY 03/06/20 12/22/20 lisinopril 40 mg PO DAILY 03/06/20 12/22/20 metoprolol tartrate 25 mg PO BID 03/06/20 12/22/20 tizanidine 2 - 4 mg PO HS PRN 03/06/20 12/22/20 oxybutynin chloride 5 mg PO BID 12/11/20 12/22/20 venlafaxine 75 mg PO DAILY 12/11/20 12/22/20 celecoxib 200 mg PO DAILY 12/22/20 12/22/20 cetirizine 10 mg PO DAILY 12/22/20 12/22/20 sertraline 100 mg PO DAILY 12/22/20 12/22/20 zonisamide 50 mg PO BID 12/22/20 12/22/20 zonisamide 100 mg PO BID 12/22/20 12/22/20 Allergies Allergy/AdvReac Type Severity Reaction Status Date / Time No Known Allergies Allergy Verified 12/22/20 17:10 Review of Systems Review of Systems: All systems reviewed & are unremarkable except as noted in HPI and below PMFSH Past Medical History Medical History Depression GERD (gastroesophageal reflux disease) Hep C w/o coma, chronic Hypertension Mixed urge and stress incontinence Neuropathy Osteoarthritis Surgical History Surgical History H/O skin graft after complicated staph infection Hx of total knee arthroplasty right Social History Social History Smoking packs per day: 1.5 Smoking cigarettes per day: 30.0 Smoking status: Smoker, status unknown Second hand tobacco smoke exposure: No Additional smoking assessment comments: has not smoked for 1 week Alcohol intake: current Drinks per week: 1 Substance use: never Gender identity (if verbalized by the patient): Female Spiritual care concerns: No Exam Const: General: no acute distress and alert Orientation/consciousness: patient oriented x3 HENMT: Head: normal to inspection Eyes: Conjunctivae: conjunctivae normal Pupils: Equal, round and reactive pupils present Neck: Neck: normal visual inspection Chest: Chest palpation & inspection: normal inspection of the chest Resp: Effort & Inspection: normal respiratory effort Auscultation: wheezes and diminished lung sounds Cardio: Rate: regular rate Rhythm: regular rhythm GI: GI Palp: Yes Soft to palpation Percussion: Yes normal to percussion Back/Spine/Pelvis: Back: no CVA tenderness Skin: General skin exam: normal color Neuro: General: patient oriented x3, moves all extremities, no meningeal signs and no focal
[2020-12-22] MEDS: SODIUM CHLORIDE 0.9% IV 1,000 ML 999 ML IV CONT (17:48)
[2020-12-22 18:50] LABS: Add Urine Microscopic? YES; Appearance Urine Clear (Clear); Bilirubin Urine Negative (Negative); Blood Urine Negative (Negative); Color Urine Yellow (Yellow); Glucose Urine UA Negative (Negative); Ketones Urine Negative (Negative); Leukocyte Esterase Ur Negative LEU/UL (Negative); Nitrate Urine Negative (Negative); Protein Urine Trace (Negative); Specific Grav Ur >= 1.030 (1.010-1.020); Urobilinogen Urine 0.2 mg/dL (0.2-1.0)
[2020-12-22 18:54] LABS: Bacteria Urine Trace /hpf; RBC Urine 0-2 /hpf (0-2); Squamous Epithelial Cell Urine Moderate /hpf (Few); WBC Urine 0-3 /hpf (0-3)
[2020-12-22 18:55] LABS: Mucus Urine Moderate /lpf
[2020-12-22] MEDS: SODIUM CHLORIDE 0.9% IV 1,000 ML 100 ML IV CONT (20:09)
--- NOTE | 2020-12-22 20:10 | PC.NURSE ---
pt requests pain and anxiety medication, asks about home pm meds, dr has not continued them at this time, charge nurse to double check that he does not want to give them to her, pt reports breathing is alright unless getting up to commode
[2020-12-22] MEDS: ENOXAPARIN 100 MG/ML SYRINGE 83 MG SUB-Q (20:50)
[2020-12-22] MEDS: MORPHINE SULFATE (*CRX) 2 MG/ML INJ IV PUSH (20:51)
[2020-12-22] MEDS: LORazepam INJ (*CRX) 2 MG/ML VIAL 0.5 MG IV PUSH (20:51)
[2020-12-23] VITALS (14 sets, daily range): BP systolic 100–115; BP diastolic 58–75; PULSE 75–88; RESP 14–24; TEMP 36.4–36.7; O2SAT 14–98
[2020-12-23] MEDS: methylPREDNISolone SOD SUCC 40 MG VIAL IV PUSH ×5 (00:05→23:51)
[2020-12-23] MEDS: IPRATROPIUM 0.5 MG/ALBUTEROL SULFATE 2.5 MG AMPUL.NEB 3 ML INHALATION ×5 (00:06→23:51)
[2020-12-23] MEDS: SODIUM CHLORIDE 0.9% IV 1,000 ML 100 ML IV CONT ×3 (00:48→22:52)
[2020-12-23 06:20] LABS: Basophils Absolute Auto 0.02 K/mm3 (0.00-0.10); Basophils Percent Auto 0.2 % (0.0-1.0); Hematocrit 38.8 % (35.0-42.0); Hemoglobin 12.8 g/dL (11.7-13.8); Immature Granulocyte Absolute 0.18 K/mm3 (0.00-0.00); Immature Granulocyte Percent A 1.4 % (0.0-0.0); Lymphocytes Absolute Auto 0.43 K/mm3 (1.10-4.50); Lymphocytes Percent Auto 3.4 % (18.0-42.0); Mean Corpuscular Hemoglobin 31.7 pg (27.0-31.0); Mean Platelet Volume 10.9 fl (9.2-11.8); Monocytes Absolute Auto 0.28 K/mm3 (0.10-0.90); Monocytes Percent Auto 2.2 % (2.0-11.0); Neutrophils Absolute Auto 11.6 K/mm3 (1.7-7.2); Neutrophils Percent Auto 92.8 % (50.0-70.0); Platelet Count Result 288 K/mm3 (150-420); Red Blood Count 4.04 M/mm3 (4.20-5.40); Red Cell Distribution Width 13.5 % (11.6-14.4); White Blood Count 12.5 K/mm3 (4.8-10.8)
[2020-12-23] MEDS: LORazepam INJ (*CRX) 2 MG/ML VIAL 0.5 MG IV PUSH ×2 (06:30→19:47)
--- NOTE | 2020-12-23 06:31 | PM.IMHP ---
H&P: HPI History of Present Illness Date/Time: 12/23/20 06:31 this is a 69-year-old female that presented to ED with shortness of breath. Patient has a past medical history of depression, GERD, hep C without coma, hypertension, mixed urge and stress incontinence, neuropathy and osteoarthritis. Patient was recently discharged our facility on 12/11/2020 diagnosed with pneumonia. patient discharged home with Levaquin and Bactrim times 10 days previous discharge. patient notices her previous admission her condition worsen and she did visit her primary care physician who prescribed her with Levaquin for her pneumonia. Patient notes that she experiences shortness of breath with exertion some chest tightness and anxiety previous to admission. admission patient's WBC 10.3 hemoglobin 13.9 hematocrit 41, platelets 293, D-dimer 1.16, pH 7.43, CO2 25.4, O2 54.4, sodium 120, potassium 4.7, BUN 37, creatinine 1.64, GFR 31, lactic acid 2.2, AST 53, ALT 26, troponin 7.6, BUN 123, influenza in COVID negative. patient is being admitted due to fill outpatient therapy will be treated with antibiotics for pneumonia, hyponatremia, acute kidney injury, elevated liver enzymes. During this assessment patient is lethargic due to Ativan and morphine but arousable. she still continues to be short of breath but note her condition has much improved since admission, patient also complains of lower back pain. disposition patient plans to discharge home inpatient time spent with patient 60 minutes Chief Complaint: shortness of breath Review of Systems Review of Systems: Narrative: A 14 organ system Review of Systems was performed and pertinent positives included in the HPI, otherwise remaining ROS is negative. [facility] Past Medical History Medical History Depression GERD (gastroesophageal reflux disease) Hep C w/o coma, chronic Hypertension Mixed urge and stress incontinence Neuropathy Osteoarthritis Surgical History Surgical History H/O skin graft after complicated staph infection Hx of total knee arthroplasty right Social History Social History Smoking packs per day: 1 Smoking cigarettes per day: 20.0 Smoking status: Former smoker Tobacco type: cigarettes Second hand tobacco smoke exposure: No Additional smoking assessment comments: has not smoked for 1 week Alcohol intake: current Drinks per week: 1 Substance use: never Gender identity (if verbalized by the patient): Female Spiritual care concerns: No Meds Home Medications and Allergies Home Medications Medication Instructions Recorded Confirmed Type amitriptyline 10 mg PO HS 03/06/20 12/22/20 History amlodipine 10 mg PO DAILY 03/06/20 12/22/20 History fluticasone propionate [Flonase 1 spray INTRANASAL DAILY 03/06/20 12/22/20 History Allergy Relief] gabapentin 100 mg PO TID 03/06/20 12/22/20 History hydrochlorothiazide 25 mg PO DAILY 03/06/20 12/22/20 History lisinopril 40 mg PO DAILY 03/06/20 12/22/20 History metoprolol tartrate 25 mg PO BID 03/06/20 12/22/20 History tizanidine 2 - 4 mg PO HS PRN 03/06/20 12/22/20 History oxybutynin chloride 5 mg PO BID 12/11/20 12/22/20 History venlafaxine 75 mg PO DAILY 12/11/20 12/22/20 History albuterol sulfate 1 inh INHALATION QID PRN #8.5 g 12/12/20 12/22/20 Rx benzonatate 200 mg PO TID PRN #30 cap 12/12/20 12/22/20 Rx budesonide-formoterol [Symbicort] 2 puff INHALATION Q12H #10.2 g 12/12/20 12/22/20 Rx guaifenesin 200 mg PO QID PRN #30 tablet 12/12/20 12/22/20 Rx levofloxacin 750 mg PO DAILY #10 tablet 12/12/20 12/22/20 Rx potassium chloride 20 meq PO DAILY #15 tablet 12/12/20 12/22/20 Rx celecoxib 200 mg PO DAILY 12/22/20 12/22/20 History cetirizine 10 mg PO DAILY 12/22/20 12/22/20 History sertraline 100 mg PO DAILY 12/22/20 12/22/20 History zonisamide 50 mg PO
[2020-12-23] MEDS: MORPHINE SULFATE (*CRX) 2 MG/ML INJ IV PUSH (06:32)
[2020-12-23 06:33] LABS: Alanine Aminotransferase 31 U/L (14-59); Albumin Level 2.8 g/dL (3.4-5.0); Alkaline Phosphatase 101 U/L (46-116); Anion Gap 10 mmol/L (8-16); Aspartate Amino Transferase 57 U/L (15-37); Bilirubin,Total 0.4 mg/dL (0.00-1.00); Blood Urea Nitrogen 40 mg/dL (7-18); Calcium 8.8 mg/dL (8.5-10.1); Carbon Dioxide 20 mmol/L (21-32); Chloride 92 mmol/L (98-108); Estimated CRCL calculation 27 ml/min; Estimated Glomerular Filt Rate 28; Glucose 120 mg/dL (70-99); Osmolality Calculated 264 mOsm/kg (285-295); Potassium 4.9 mmol/L (3.5-5.1); Sodium 122 mmol/L (136-145); Total Protein 6.8 g/dL (6.4-8.2)
[2020-12-23 07:04] LABS: Lactic Acid Reflex 2.2 mmol/L (0.4-2.0)
[2020-12-23] MEDS: ENOXAPARIN 100 MG/ML SYRINGE 83 MG SUB-Q ×2 (07:51→20:58)
[2020-12-23] MEDS: FLUTICASONE PROPIONATE 0.05% NA SPR 16 GM BTL (*BKC) 1 SPRAY NASAL (07:52)
[2020-12-23] MEDS: LIDOCAINE 5% PATCH 1 PATCH TRANSDERM (07:52)
[2020-12-23] MEDS: POTASSIUM CHLORIDE 20 MEQ TABLET PO (07:52)
[2020-12-23] MEDS: NICOTINE (*PBKC) 21 MG PATCH 1 PATCH TRANSDERM (07:52)
[2020-12-23] MEDS: amLODIPine BESYLATE 5 MG TABLET 10 MG PO (07:53)
[2020-12-23] MEDS: guaiFENesin 12 HR 600 MG TABCR 1200 MG PO ×2 (07:53→20:56)
[2020-12-23] MEDS: GABAPENTIN 100 MG CAPSULE PO ×3 (07:53→17:03)
[2020-12-23] MEDS: LORATADINE 10 MG TABLET PO (07:53)
[2020-12-23] MEDS: METOPROLOL TARTRATE 25 MG TABLET PO ×2 (07:53→20:56)
[2020-12-23] MEDS: BENZONATATE 100 MG CAPSULE 200 MG PO ×3 (07:54→17:02)
[2020-12-23] MEDS: HYDROcodone/acetaminophen (*CRX) 7.5-325 MG TABLET 1 TAB PO ×3 (07:54→23:51)
[2020-12-23] MEDS: SERTRALINE HCL 50 MG TABLET 100 MG PO (07:55)
[2020-12-23] MEDS: OXYBUTYNIN CHLORIDE 5 MG TABLET PO ×2 (07:55→17:03)
[2020-12-23] MEDS: VENLAFAXINE HCL XR 75 MG CAP.ER.24H PO (07:55)
[2020-12-23] MEDS: PANTOPRAZOLE SOD SESQUIHYDRATE 20 MG TAB PO (07:55)
[2020-12-23] MEDS: CELECOXIB 100 MG CAPSULE 200 MG PO (07:56)
[2020-12-23] MEDS: ZONISAMIDE 25 MG CAPSULE 50 MG PO ×2 (07:57→17:03)
[2020-12-23] MEDS: ZONISAMIDE 100 MG CAPSULE PO ×2 (07:57→17:03)
[2020-12-23 09:47] LABS: Reflex Lactic Acid Yes or No Add Lactic
[2020-12-23 10:05] LABS: SARS-CoV-2 RNA PCR Negative (Negative)
[2020-12-23] MEDS: ACETAMINOPHEN 325 MG TABLET 650 MG PO (19:47)
[2020-12-23] MEDS: TIZANIDINE HCL 2 MG TABLET 4 MG PO (20:56)
[2020-12-23] MEDS: AMITRIPTYLINE HCL 10 MG TABLET PO (21:07)
[2020-12-23] MEDS: MAGNESIUM HYDROXIDE SUSP 30 ML UDC PO (21:08)
[2020-12-24] VITALS (12 sets, daily range): BP systolic 131–149; BP diastolic 58–76; PULSE 72–94; RESP 20–24; TEMP 36–36.5; O2SAT 80–98
[2020-12-24] MEDS: methylPREDNISolone SOD SUCC 40 MG VIAL IV PUSH ×3 (05:19→19:15)
[2020-12-24] MEDS: IPRATROPIUM 0.5 MG/ALBUTEROL SULFATE 2.5 MG AMPUL.NEB 3 ML INHALATION ×2 (05:39→12:16)
[2020-12-24 05:42] LABS: Hematocrit 35.7 % (35.0-42.0); Hemoglobin 12.1 g/dL (11.7-13.8); Mean Corpuscular HGB Conc 33.9 g/dL (32.0-36.0); Mean Corpuscular Hemoglobin 31.9 pg (27.0-31.0); Mean Corpuscular Volume 94.2 fL (78.0-102.0); Mean Platelet Volume 10.9 fl (9.2-11.8); Platelet Count Result 263 K/mm3 (150-420); Red Blood Count 3.79 M/mm3 (4.20-5.40); Red Cell Distribution Width 13.6 % (11.6-14.4)
[2020-12-24 05:48] LABS: White Blood Count 21.1 K/mm3 (4.8-10.8)
[2020-12-24 05:56] LABS: Alanine Aminotransferase 32 U/L (14-59); Albumin Level 2.6 g/dL (3.4-5.0); Alkaline Phosphatase 110 U/L (46-116); Anion Gap 9 mmol/L (8-16); Aspartate Amino Transferase 56 U/L (15-37); Bilirubin,Total 0.4 mg/dL (0.00-1.00); Blood Urea Nitrogen 30 mg/dL (7-18); Calcium 8.4 mg/dL (8.5-10.1); Carbon Dioxide 20 mmol/L (21-32); Chloride 92 mmol/L (98-108); Estimated CRCL calculation 42 ml/min; Estimated Glomerular Filt Rate 48; Glucose 136 mg/dL (70-99); Magnesium 2.6 mg/dL (1.8-2.4); Osmolality Calculated 260 mOsm/kg (285-295); Potassium 4.9 mmol/L (3.5-5.1); Sodium 121 mmol/L (136-145); Total Protein 6.3 g/dL (6.4-8.2)
[2020-12-24 06:01] LABS: Lactic Acid Reflex 1.1 mmol/L (0.4-2.0)
--- NOTE | 2020-12-24 06:18 | PC.NURSE ---
Patient c/o sore throat this AM. Technical Trainer assessed throat and noted redness and white patches to left side of throat and cheek. Patient states that back of mouth and throat are painful. automatic lathe setter notified.
--- NOTE | 2020-12-24 09:18 | PHAR ---
verified w/matthieu burgess pt takes zonisamide 150mg bid (she has 2 sep scripts she fills, one for 100mg bid and one for 50mg bid). tls
[2020-12-24] MEDS: NICOTINE (*PBKC) 21 MG PATCH 1 PATCH TRANSDERM (09:24)
--- NOTE | 2020-12-24 09:24 | PHAR ---
VERIFIED HOME MED OF ZONISAMIDE 50MG CAPS (TAKING 3 BID FOR DOSE OF 150MG BID). TLS
[2020-12-24] MEDS: LIDOCAINE 5% PATCH 1 PATCH TRANSDERM (09:26)
[2020-12-24] MEDS: NYSTATIN 100,000 UNITS/ML SUSP 5 ML ORAL.SUSP PO ×4 (09:27→20:52)
[2020-12-24] MEDS: ENOXAPARIN 100 MG/ML SYRINGE 83 MG SUB-Q (09:29)
[2020-12-24] MEDS: SERTRALINE HCL 50 MG TABLET 100 MG PO (09:31)
[2020-12-24] MEDS: POTASSIUM CHLORIDE 20 MEQ TABLET PO (09:32)
[2020-12-24] MEDS: OXYBUTYNIN CHLORIDE 5 MG TABLET PO ×2 (09:32→17:31)
[2020-12-24] MEDS: PANTOPRAZOLE SOD SESQUIHYDRATE 20 MG TAB PO (09:32)
[2020-12-24] MEDS: METOPROLOL TARTRATE 25 MG TABLET PO ×2 (09:32→20:52)
[2020-12-24] MEDS: GABAPENTIN 100 MG CAPSULE PO ×3 (09:32→17:30)
[2020-12-24] MEDS: guaiFENesin 12 HR 600 MG TABCR 1200 MG PO ×2 (09:32→20:54)
[2020-12-24] MEDS: LORATADINE 10 MG TABLET PO (09:33)
[2020-12-24] MEDS: BENZONATATE 100 MG CAPSULE 200 MG PO ×3 (09:33→17:30)
[2020-12-24] MEDS: amLODIPine BESYLATE 5 MG TABLET 10 MG PO (09:33)
[2020-12-24] MEDS: VENLAFAXINE HCL XR 75 MG CAP.ER.24H PO (09:34)
[2020-12-24] MEDS: FLUTICASONE PROPIONATE 0.05% NA SPR 16 GM BTL (*BKC) 1 SPRAY NASAL (09:38)
[2020-12-24] MEDS: MAGNESIUM CITRATE 300 ML BTL 150 ML PO (09:38)
[2020-12-24] MEDS: SODIUM CHLORIDE 0.9% IV 1,000 ML 100 ML IV CONT (09:57)
[2020-12-24] MEDS: HYDROcodone/acetaminophen (*CRX) 7.5-325 MG TABLET 1 TAB PO ×2 (10:02→20:54)
[2020-12-24] MEDS: LORazepam INJ (*CRX) 2 MG/ML VIAL 0.5 MG IV PUSH (10:04)
--- NOTE | 2020-12-24 11:08 | P.PNIM_ITS ---
Progress Note: A&P Assessment and Plan (1) Community acquired pneumonia: Qualifiers: Laterality: unspecified laterality Qualified Code(s): J18.9 - Pneumonia, unspecified organism <Lee Medina FAUZIA Mallory - Last Filed: 12/24/20 14:52> Code(s): J18.9 - Pneumonia, unspecified organism <Lee Medina FAUZIA Mallory - Last Filed: 12/24/20 14:52> Status: Acute <Lee Medina FAUZIA Mallory - Last Filed: 12/24/20 14:52> Assessment and Plan: * chest x-ray indicates right and left lower lung pneumonia versus pulmonary edema * wbc's 10.3-->12.5 * BNP 123 * abg- primary respiratory alkalosis with chronic secondary metabolic acidosis * blood culture pending * influenza on COVID negative * lactic acid 2.2 * continue azithromycin and added vancomycin with pharmacy to dose * continue supplementary oxygen, with inhalers and nebulizers, cough suppressant and anti-D congestion medication * repeat CBC in the a.m. 12/24/2020 New Chest stating improvement, Pt is tachypneic, ABG shows she is blowing off CO2, changed over to high flow O2 therapy and will consider BiPAP, Lasix 40 mg 1 time given and this showed improvement in lung sounds, may need to transfer Pt depending on her response to new interventions. <Lee GomezFAUZIA Carvalho - Last Filed: 12/24/20 14:52> (2) Acute hyponatremia: Code(s): E87.1 - Hypo-osmolality and hyponatremia <Lee GomezFAUZIA Carvalho - Last Filed: 12/24/20 14:52> Status: Acute <Lee GomezFAUZIA Carvalho - Last Filed: 12/24/20 14:52> Assessment and Plan: * Possibly secondary to dehydration * continue IV fluid * stop hydrochlorothiazide 12/24/2020 Lung sounds were quite wet, DC'ed NS that was initially increase this AM to 150/h, changed to hypertonic saline and running at 30mL/h with close BMP monitoring Q6H. <Lee JasonFAUZIA Carvalho - Last Filed: 12/24/20 14:52> (3) D-dimer, elevated: Code(s): R79.89 - Other specified abnormal findings of blood chemistry <NEETU KeysN-C - Last Filed: 12/24/20 14:52> Status: Acute <Lee Mallory APN-C - Last Filed: 12/24/20 14:52> Assessment and Plan: * D-dimer also elevated last visit for 2020, CTA negative for a PE last visit * D-dimer 1.16 * will repeat CTA once renal function improves * continue weight based Lovenox for now 12/24/2020 VQ scan shows low probability for Pulmonary embolism <Lee Mallory GALLERY MANAGER-C - Last Filed: 12/24/20 14:52> (4) Acute kidney injury: Code(s): N17.9 - Acute kidney failure, unspecified <NEETU KeysN-C - Last Filed: 12/24/20 14:52> Status: Acute <Lee Mallory APN-C - Last Filed: 12/24/20 14:52> Assessment and Plan: * creatinine on admission 1.64-->1.78, baseline appears to be at 0.68 * lisinopril and hydrochlorothiazide on hold * renal dose medication * avoid nephrotoxic agents * CMP in a.m. 12/24/2020 Improving, continue to monitor <Lee Mallory APN-C - Last Filed: 12/24/20 14:52> (5) Mass of lower lobe of lung: Code(s): R91.8 - Other nonspecific abnormal finding of lung field <Lee Mallory GALLERY MANAGER-C - Last Filed: 12/24/20 14:52> Status: Acute <Lee Mallory GALLERY MANAGER-C - Last Filed: 12/24/20 14:52> Assessment and Plan: * spoke with patient's primary care physician Dr. Jean-Baptiste last hospital admission * patient will need to follow-up with primary care physician 12/24/2020 Pt is to have biopsy scheduled with PCP during office visit <Lee Mallory GALLERY MANAGER-C - Last Filed: 12/24/20 14:52> (6) Hypertension: Code(s
--- NOTE | 2020-12-24 11:08 | PM.IMPN ---
Progress Note: A&P Assessment and Plan (1) Community acquired pneumonia: Qualifiers: Laterality: unspecified laterality Qualified Code(s): J18.9 - Pneumonia, unspecified organism <Lee HernandezFAUZIA kenney - Last Filed: 12/24/20 14:52> Code(s): J18.9 - Pneumonia, unspecified organism <Lee HernandezFAUZIA kenney - Last Filed: 12/24/20 14:52> Status: Acute <Lee Medina FAUZIA Mallory - Last Filed: 12/24/20 14:52> Assessment and Plan: chest x-ray indicates right and left lower lung pneumonia versus pulmonary edema wbc's 10.3-->12.5 BNP 123 abg- primary respiratory alkalosis with chronic secondary metabolic acidosis blood culture pending influenza on COVID negative lactic acid 2.2 continue azithromycin and added vancomycin with pharmacy to dose continue supplementary oxygen, with inhalers and nebulizers, cough suppressant and anti-D congestion medication repeat CBC in the a.m. 12/24/2020 New Chest stating improvement, Pt is tachypneic, ABG shows she is blowing off CO2, changed over to high flow O2 therapy and will consider BiPAP, Lasix 40 mg 1 time given and this showed improvement in lung sounds, may need to transfer Pt depending on her response to new interventions. <Lee GomezFAUZIA Carvalho - Last Filed: 12/24/20 14:52> (2) Acute hyponatremia: Code(s): E87.1 - Hypo-osmolality and hyponatremia <Lee GomezFAUZIA Carvalho - Last Filed: 12/24/20 14:52> Status: Acute <Lee GomezFAUZIA Carvalho - Last Filed: 12/24/20 14:52> Assessment and Plan: Possibly secondary to dehydration continue IV fluid stop hydrochlorothiazide 12/24/2020 Lung sounds were quite wet, DC'ed NS that was initially increase this AM to 150/h, changed to hypertonic saline and running at 30mL/h with close BMP monitoring Q6H. <Lee GomezFAUZIA Carvalho - Last Filed: 12/24/20 14:52> (3) D-dimer, elevated: Code(s): R79.89 - Other specified abnormal findings of blood chemistry <Lee MalloryRADHAC - Last Filed: 12/24/20 14:52> Status: Acute <Lee Mallory FAUZIA - Last Filed: 12/24/20 14:52> Assessment and Plan: D-dimer also elevated last visit for 2020, CTA negative for a PE last visit D-dimer 1.16 will repeat CTA once renal function improves continue weight based Lovenox for now 12/24/2020 VQ scan shows low probability for Pulmonary embolism <Lee MalloryRADHAC - Last Filed: 12/24/20 14:52> (4) Acute kidney injury: Code(s): N17.9 - Acute kidney failure, unspecified <Lee MalloryFAUZIA - Last Filed: 12/24/20 14:52> Status: Acute <Lee MalloryRADHAC - Last Filed: 12/24/20 14:52> Assessment and Plan: creatinine on admission 1.64-->1.78, baseline appears to be at 0.68 lisinopril and hydrochlorothiazide on hold renal dose medication avoid nephrotoxic agents CMP in a.m. 12/24/2020 Improving, continue to monitor <Lee MalloryFAUZIA - Last Filed: 12/24/20 14:52> (5) Mass of lower lobe of lung: Code(s): R91.8 - Other nonspecific abnormal finding of lung field <Lee MalloryFAUZIA - Last Filed: 12/24/20 14:52> Status: Acute <Lee MalloryFAUZIA - Last Filed: 12/24/20 14:52> Assessment and Plan: spoke with patient's primary care physician Dr. Jean-Baptiste last hospital admission patient will need to follow-up with primary care physician 12/24/2020 Pt is to have biopsy scheduled with PCP during office visit <Lee GomezAlexandro MohamudFAUZIA - Last Filed: 12/24/20 14:52> (6) Hypertension: Code(s): I10 - Essential (primary) hypertension <Lee MalloryFAUZIA - Last Filed: 12/24/20 14:52> Status: Acute <Lee Mallory, CRYPTOLOGIST-C - Last Filed: 12/24/20 14:52> Assessment and Plan: lisinopril and hydrochlorothiazide on hold due to acute kidney injury continue Norvasc And metoprolol 12/24/2020 BP has been good,
[2020-12-24] MEDS: LORazepam INJ (*CRX) 2 MG/ML VIAL 1 MG IV PUSH (12:59)
[2020-12-24] MEDS: FUROSEMIDE INJ 40 MG/4 ML VIAL IV PUSH (13:00)
[2020-12-24] MEDS: SODIUM CHLORIDE 3% 500 ML 30 ML IV CONT (13:00)
[2020-12-24 13:43] LABS: Anion Gap 8 mmol/L (8-16); Blood Urea Nitrogen 28 mg/dL (7-18); Calcium 8.7 mg/dL (8.5-10.1); Carbon Dioxide 20 mmol/L (21-32); Chloride 91 mmol/L (98-108); Estimated CRCL calculation 45 ml/min; Estimated Glomerular Filt Rate 53; Glucose 132 mg/dL (70-99); NT Pro B Type Natriuretic Pept 222 pg/mL (0-125); Osmolality Calculated 255 mOsm/kg (285-295); Potassium 5.3 mmol/L (3.5-5.1)
[2020-12-24 13:46] LABS: Sodium 119 mmol/L (136-145)
[2020-12-24 14:04] LABS: Base Excess ABG -11.8 mmol/L (0-2); HCO3 ABG 11.4 mmol/L (23-29); Oxygen Saturation ABG 86.4 % (95-97); PO2 ABG 53.9 mmHg (75-85); Total Hemoglobin 9.9 g/dL; pH ABG 7.39 (7.35-7.45)
[2020-12-24 14:06] LABS: Device NASAL CANNULA; Modified Allen's Test Pass; PCO2 ABG 19.3 mmHg (35-45); Site Drawn RIGHT RADIAL
[2020-12-24] MEDS: BISACODYL 10 MG SUPPOSITORY RECTAL (15:00)
[2020-12-24 15:12] LABS: Base Excess ABG -5.2 mmol/L (0-2); HCO3 ABG 18.7 mmol/L (23-29); Oxygen Content ABG 18.2 %vol (16.0-22.0); Oxygen Saturation ABG 95.6 % (95-97); PCO2 ABG 31.8 mmHg (35-45); PO2 ABG 78.3 mmHg (75-85); Total Hemoglobin 13.6 g/dL; pH ABG 7.39 (7.35-7.45)
[2020-12-24 15:13] LABS: Modified Allen's Test Pass; Site Drawn LEFT RADIAL
[2020-12-24 15:14] LABS: Device HIGH FLOW NASAL CANN
[2020-12-24 18:32] LABS: Anion Gap 5 mmol/L (8-16); Blood Urea Nitrogen 29 mg/dL (7-18); Carbon Dioxide 23 mmol/L (21-32); Chloride 92 mmol/L (98-108); Estimated CRCL calculation 43 ml/min; Estimated Glomerular Filt Rate 51; Glucose 134 mg/dL (70-99); Osmolality Calculated 257 mOsm/kg (285-295); Potassium 5.4 mmol/L (3.5-5.1)
[2020-12-24 18:33] LABS: Sodium 120 mmol/L (136-145)
--- NOTE | 2020-12-24 18:38 | PC.NURSE ---
Dr. Urrutia notified that patient has a critical Sodium level of 120. acknowledged the result with no new orders.
--- NOTE | 2020-12-24 19:10 | PC.NURSE ---
1800 solumedrol and Rocephin dose given late due to IV infiltration and issues getting a new IV site established.
--- NOTE | 2020-12-24 19:26 | PC.NURSE ---
ER nurse placed IV in left hand. Solu-medrol given. IV ABT given.
[2020-12-24] MEDS: TIZANIDINE HCL 2 MG TABLET 4 MG PO (20:52)
[2020-12-24] MEDS: AMITRIPTYLINE HCL 10 MG TABLET PO (20:54)
--- NOTE | 2020-12-24 21:09 | PC.NURSE ---
Transferred to bedside commode with assist of 2. Unable to follow commands, Difficulty standing and moving legs and feet. Positioned in bed with HOB elevated. Increase on SOB with transfer. Advised patient would be using bedpan in the future of safety. Voided less than 10 mls but did have wet Depends.
[2020-12-25] VITALS: BP 127/55; PULSE 68; RESP 35; TEMP 36.3; O2SAT 96
[2020-12-25] MEDS: methylPREDNISolone SOD SUCC 40 MG VIAL IV PUSH ×2 (00:10→07:31)
[2020-12-25 01:20] VITALS: PULSE 71; RESP 30; O2SAT 95
[2020-12-25] MEDS: IPRATROPIUM 0.5 MG/ALBUTEROL SULFATE 2.5 MG AMPUL.NEB 3 ML INHALATION ×2 (01:35→05:36)
--- NOTE | 2020-12-25 02:30 | PC.NURSE ---
Lab was unable to obtain blood specimen. Patient refused to continue at this time.
[2020-12-25] MEDS: SODIUM CHLORIDE 3% 500 ML 30 ML IV CONT (04:03)
[2020-12-25 05:37] VITALS: PULSE 66; RESP 26; O2SAT 95
[2020-12-25 05:46] VITALS: PULSE 66; RESP 26; O2SAT 97
[2020-12-25 06:05] LABS: Anion Gap 6 mmol/L (8-16); Blood Urea Nitrogen 28 mg/dL (7-18); Calcium 8.8 mg/dL (8.5-10.1); Carbon Dioxide 21 mmol/L (21-32); Chloride 95 mmol/L (98-108); Estimated CRCL calculation 45 ml/min; Estimated Glomerular Filt Rate 53; Glucose 122 mg/dL (70-99); Osmolality Calculated 260 mOsm/kg (285-295); Potassium 5.9 mmol/L (3.5-5.1); Sodium 122 mmol/L (136-145)
--- NOTE | 2020-12-25 06:32 | PC.NURSE ---
Dr. Urrutia notified of pt's sodium value of 122; No new orders at this time.
[2020-12-25] MEDS: ZONISAMIDE 100 MG CAPSULE PO (07:20)
[2020-12-25] MEDS: ZONISAMIDE 25 MG CAPSULE 50 MG PO (07:21)
[2020-12-25 08:00] VITALS: BP 147/61; PULSE 79; RESP 22; TEMP 36.6; O2SAT 93
[2020-12-25 08:16] LABS: Hematocrit 38.5 % (35.0-42.0); Hemoglobin 12.6 g/dL (11.7-13.8); Mean Corpuscular HGB Conc 32.7 g/dL (32.0-36.0); Mean Corpuscular Hemoglobin 32.7 pg (27.0-31.0); Mean Platelet Volume 11.2 fl (9.2-11.8); Platelet Count Result 222 K/mm3 (150-420); Red Blood Count 3.85 M/mm3 (4.20-5.40); Red Cell Distribution Width 14.3 % (11.6-14.4); White Blood Count 14.5 K/mm3 (4.8-10.8)
[2020-12-25] MEDS: LIDOCAINE 5% PATCH 1 PATCH TRANSDERM (08:26)
[2020-12-25] MEDS: NICOTINE (*PBKC) 21 MG PATCH 1 PATCH TRANSDERM (08:26)
[2020-12-25] MEDS: ENOXAPARIN 40 MG/0.4 ML SYRINGE SUB-Q (08:27)
[2020-12-25] MEDS: NYSTATIN 100,000 UNITS/ML SUSP 5 ML ORAL.SUSP PO (08:27)
[2020-12-25] MEDS: POTASSIUM CHLORIDE 20 MEQ TABLET PO (08:28)
[2020-12-25] MEDS: VENLAFAXINE HCL XR 75 MG CAP.ER.24H PO (08:28)
[2020-12-25] MEDS: guaiFENesin 12 HR 600 MG TABCR 1200 MG PO (08:28)
[2020-12-25] MEDS: FLUTICASONE PROPIONATE 0.05% NA SPR 16 GM BTL (*BKC) 1 SPRAY NASAL (08:28)
[2020-12-25 08:29] VITALS: PULSE 79
[2020-12-25] MEDS: METOPROLOL TARTRATE 25 MG TABLET PO (08:29)
[2020-12-25] MEDS: GABAPENTIN 100 MG CAPSULE PO (08:29)
[2020-12-25] MEDS: LORATADINE 10 MG TABLET PO (08:29)
[2020-12-25] MEDS: PANTOPRAZOLE SOD SESQUIHYDRATE 20 MG TAB PO (08:29)
[2020-12-25] MEDS: amLODIPine BESYLATE 5 MG TABLET 10 MG PO (08:29)
[2020-12-25] MEDS: OXYBUTYNIN CHLORIDE 5 MG TABLET PO (08:30)
[2020-12-25] MEDS: SERTRALINE HCL 50 MG TABLET 100 MG PO (08:30)
[2020-12-25] MEDS: BENZONATATE 100 MG CAPSULE 200 MG PO (08:30)
[2020-12-25 08:49] LABS: Alanine Aminotransferase 44 U/L (14-59); Albumin Level 2.6 g/dL (3.4-5.0); Alkaline Phosphatase 117 U/L (46-116); Anion Gap 8 mmol/L (8-16); Aspartate Amino Transferase 59 U/L (15-37); Bilirubin,Total 0.4 mg/dL (0.00-1.00); Blood Urea Nitrogen 28 mg/dL (7-18); Calcium 8.5 mg/dL (8.5-10.1); Carbon Dioxide 20 mmol/L (21-32); Chloride 95 mmol/L (98-108); Estimated CRCL calculation 47 ml/min; Estimated Glomerular Filt Rate 57; Glucose 118 mg/dL (70-99); Osmolality Calculated 262 mOsm/kg (285-295); Sodium 123 mmol/L (136-145); Total Protein 6.5 g/dL (6.4-8.2)
[2020-12-25 09:01] LABS: Potassium 6.1 mmol/L (3.5-5.1)
--- NOTE | 2020-12-25 09:21 | ECG_ITS ---
Measurements Intervals [place] Rate: 81 P: 35 AR: 165 QRS: 19 QRSD: 98 T: 2 QT: 342 QTc: 398 Interpretive Statements SINUS RHYTHM LOW QRS VOLTAGE IN PRECORDIAL LEADS VOLTAGE CRITERIA FOR LVH BORDERLINE R WAVE PROGRESSION, ANTERIOR LEADS CONSIDER INFERIOR INFARCT, AGE INDETERMINATE ABNORMAL ECG Electronically Signed On 12-25-2020 11:09:19 CDT by Harley Dick D.O.
[2020-12-25] MEDS: SODIUM POLYSTYRENE SULFONONATE 15 GM/60 ML BTL PO (09:34)
[2020-12-25] MEDS: HYDROcodone/acetaminophen (*CRX) 7.5-325 MG TABLET 1 TAB PO (09:35)
[2020-12-25] MEDS: LORazepam INJ (*CRX) 2 MG/ML VIAL 0.5 MG IV PUSH (09:43)
[2020-12-25 10:08] LABS: NT Pro B Type Natriuretic Pept 175 pg/mL (0-125)
--- NOTE | 2020-12-25 11:14 | P.DS_ITS ---
DS: Admitting Diagnosis Admitting Diagnosis Admitting Diagnosis: Pneumonia and hyponatremia DS: Discharge Diagnosis Discharge Diagnosis (1) Community acquired pneumonia: Qualifiers: Laterality: unspecified laterality Qualified Code(s): J18.9 - Pneumonia, unspecified organism Code(s): J18.9 - Pneumonia, unspecified organism Status: Acute Assessment and Plan: * chest x-ray indicates right and left lower lung pneumonia versus pulmonary edema * wbc's 10.3-->12.5-->21.1-->14.5 * BNP 123 * abg- primary respiratory alkalosis with chronic secondary metabolic acidosis * blood culture pending * influenza on COVID negative * lactic acid 2.2-->1.1 * Patient antibiotics changed to Rocephin and vancomycin * Patient requires higher level care transferred to [facility] (2) Acute hyponatremia: Code(s): E87.1 - Hypo-osmolality and hyponatremia Status: Acute Assessment and Plan: * Possibly secondary to dehydration versus CVA * continue IV fluid sodium chloride 3% * stop hydrochlorothiazide * Patient requires higher level care transferred to [facility] (3) D-dimer, elevated: Code(s): R79.89 - Other specified abnormal findings of blood chemistry Status: Acute Assessment and Plan: * D-dimer also elevated last visit for 2020, CTA negative for a PE last visit * D-dimer 1.16 * VQ scan indicated low probability of PE (4) Acute kidney injury: Code(s): N17.9 - Acute kidney failure, unspecified Status: Acute Assessment and Plan: * creatinine on admission 1.64-->1.78,-->0.97baseline appears to be at 0.68 * lisinopril and hydrochlorothiazide on hold * * CMP in a.m. (5) Mass of lower lobe of lung: Code(s): R91.8 - Other nonspecific abnormal finding of lung field Status: Acute Assessment and Plan: * spoke with patient's primary care physician Dr. Jean-Baptiste last hospital admission, plan for biopsy after pneumonia resolved * Suggested a mushroom spawn maker in developing machine operator oncologist consult with patient well at [facility] (6) Hypertension: Code(s): I10 - Essential (primary) hypertension Status: Acute Assessment and Plan: * lisinopril and hydrochlorothiazide on hold due to acute kidney injury * continue Norvasc And metoprolol (7) GERD (gastroesophageal reflux disease): Code(s): K21.9 - Gastro-esophageal reflux disease without esophagitis Status: Acute Assessment and Plan: * pantoprazole (8) Neuropathy: Code(s): G62.9 - Polyneuropathy, unspecified Status: Acute Assessment and Plan: * gabapentin 100 mg t.i.d. (9) Depression: Code(s): F32.9 - Major depressive disorder, single episode, unspecified Status: Acute Assessment and Plan: * continue Zoloft 100 mg daily (10) Osteoarthritis: Code(s): M19.90 - Unspecified osteoarthritis, unspecified site Status: Acute (11) Dehydration: Code(s): E86.0 - Dehydration Status: Acute Assessment and Plan: * continue IV hydration (12) Elevated AST (SGOT): Code(s): R74.01 - Elevation of levels of liver transaminase levels Status: Acute Assessment and Plan: * possibly secondary to dehydration * avoid hepatotoxic agents * CMP in a.m. (13) Tobacco dependence: Code(s): F17.200 - Nicotine dependence, unspecified, uncomplicated Status: Acute Assessment and Plan: * Educated on smoking cessation * flora
--- NOTE | 2020-12-25 11:14 | PM.DS ---
DS: Admitting Diagnosis Admitting Diagnosis Admitting Diagnosis: Pneumonia and hyponatremia DS: Discharge Diagnosis Discharge Diagnosis (1) Community acquired pneumonia: Qualifiers: Laterality: unspecified laterality Qualified Code(s): J18.9 - Pneumonia, unspecified organism Code(s): J18.9 - Pneumonia, unspecified organism Status: Acute Assessment and Plan: chest x-ray indicates right and left lower lung pneumonia versus pulmonary edema wbc's 10.3-->12.5-->21.1-->14.5 BNP 123 abg- primary respiratory alkalosis with chronic secondary metabolic acidosis blood culture pending influenza on COVID negative lactic acid 2.2-->1.1 Patient antibiotics changed to Rocephin and vancomycin Patient requires higher level care transferred to [facility] (2) Acute hyponatremia: Code(s): E87.1 - Hypo-osmolality and hyponatremia Status: Acute Assessment and Plan: Possibly secondary to dehydration versus CVA continue IV fluid sodium chloride 3% stop hydrochlorothiazide Patient requires higher level care transferred to [facility] (3) D-dimer, elevated: Code(s): R79.89 - Other specified abnormal findings of blood chemistry Status: Acute Assessment and Plan: D-dimer also elevated last visit for 2020, CTA negative for a PE last visit D-dimer 1.16 VQ scan indicated low probability of PE (4) Acute kidney injury: Code(s): N17.9 - Acute kidney failure, unspecified Status: Acute Assessment and Plan: creatinine on admission 1.64-->1.78,-->0.97baseline appears to be at 0.68 lisinopril and hydrochlorothiazide on hold CMP in a.m. (5) Mass of lower lobe of lung: Code(s): R91.8 - Other nonspecific abnormal finding of lung field Status: Acute Assessment and Plan: spoke with patient's primary care physician Dr. Jean-Baptiste last hospital admission, plan for biopsy after pneumonia resolved Suggested a specialist icu in educational psychologist oncologist consult with patient well at [facility] (6) Hypertension: Code(s): I10 - Essential (primary) hypertension Status: Acute Assessment and Plan: lisinopril and hydrochlorothiazide on hold due to acute kidney injury continue Norvasc And metoprolol (7) GERD (gastroesophageal reflux disease): Code(s): K21.9 - Gastro-esophageal reflux disease without esophagitis Status: Acute Assessment and Plan: pantoprazole (8) Neuropathy: Code(s): G62.9 - Polyneuropathy, unspecified Status: Acute Assessment and Plan: gabapentin 100 mg t.i.d. (9) Depression: Code(s): F32.9 - Major depressive disorder, single episode, unspecified Status: Acute Assessment and Plan: continue Zoloft 100 mg daily (10) Osteoarthritis: Code(s): M19.90 - Unspecified osteoarthritis, unspecified site Status: Acute (11) Dehydration: Code(s): E86.0 - Dehydration Status: Acute Assessment and Plan: continue IV hydration (12) Elevated AST (SGOT): Code(s): R74.01 - Elevation of levels of liver transaminase levels Status: Acute Assessment and Plan: possibly secondary to dehydration avoid hepatotoxic agents CMP in a.m. (13) Tobacco dependence: Code(s): F17.200 - Nicotine dependence, unspecified, uncomplicated Status: Acute Assessment and Plan: Educated on smoking cessation nicotine patch added (14) Mixed urge and stress incontinence: Code(s): N39.46 - Mixed incontinence Status: Acute DS: Summary Hospital Course Hospital Course: this is a 69-year-old female that presented to ED with shortness of breath. Patient has a past medical history of depression, GERD, hep C without coma, hypertension, mixed urge and stress incontinence, neuropathy and osteoarthritis. Patient was recently discharged our facility on 12/11/2020 diagnosed w
--- NOTE | 2020-12-25 11:14 | PC.NURSE ---
Patient discharged and transferred to [facility] in [place] transported via EMS. All personal items have been sent with patient and transport. All home medications have also been handed over to EMS and sent with patient. Report given to Nohemi at [facility].
== END 2020-12-25 11:10 | disposition short-term general hospital (02) | DRG 194 ==
LOC: CHSED 17:52 → CHS2ND 18:03
PROVIDERS: Nurse Practitioner; Nurse Practitioner Family; Admitting Provider Emergency Medicine; Emergency Provider Emergency Medicine; Visit Provider Emergency Medicine
DX: J18.9 Pneumonia, unspecified organism (principal); E87.1 Hypo-osmolality and hyponatremia; N17.9 Acute kidney failure, unspecified; J44.9 Chronic obstructive pulmonary disease, unspecified; E86.0 Dehydration; I10 Essential (primary) hypertension; K21.9 Gastro-esophageal reflux disease without esophagitis; B18.2 Chronic viral hepatitis C; M19.90 Unspecified osteoarthritis, unspecified site; N39.46 Mixed incontinence; G62.9 Polyneuropathy, unspecified; F17.210 Nicotine dependence, cigarettes, uncomplicated; Z20.822 Contact with and (suspected) exposure to COVID-19; R74.01 Elevation of levels of liver transaminase levels; R91.8 Other nonspecific abnormal finding of lung field; R79.89 Other specified abnormal findings of blood chemistry; F17.200 Nicotine dependence, unspecified, uncomplicated; F32.9 Major depressive disorder, single episode, unspecified; Z96.651 Presence of right artificial knee joint
CPT/HCPCS: 36415; 36600; 71045; 74018; 78580; 80048; 80053; 81001; 82805; 83605; 83735; 83880; 84484; 85025; 85027; 85380; 85610; 85730; 87040; 87426; 87804; 93005; 94640; 94667; 96374; 96375; 99285; A9270; A9540; C9803; J0696; J1650; J1885; J1940; J2060; J2270; J2920; J2930; J3370; J7030; J7131; U0003; U0005